=== PATIENT | female | born 2000 | race Hispanic/Latino ===

== ENCOUNTER 2025-09-14 11:33 | Inpatient (IN) | payer OTHER ==
[~2025-09-14] VITALS: Ht 162.6 cm; Wt 116.6 kg
[2025-09-14] MEDS ORDERED: CALCIUM CARBONATE 500 MG CHEW PO PRN ×2 (13:45→19:00)
[2025-09-14] MEDS ORDERED: TERBUTALINE SULFATE 1 MG/ML AMP SUB-Q PRN (13:45)
[2025-09-14] MEDS ORDERED: MAGNESIUM HYDROXIDE/AL HYDROX 30 ML CUP PO PRN ×2 (13:45→19:00)
[2025-09-14] MEDS ORDERED: LACTATED RINGER'S 1,000 ML IV SCH (13:45)
[2025-09-14] MEDS ORDERED: LIDOCAINE HCL 1% 30 ML SDV INJ PRN (13:45)
[2025-09-14 13:50] LABS: MCH 27.9 PG (25.6-32.2); MCHC 33.1 g/dL (32.2-35.5); MCV 84.4 fL (79.4-94.8); RBC 4.37 M/uL (3.93-5.22)
[2025-09-14 14:02] LABS: ABO O; RH POSITIVE
[2025-09-14 14:12] LABS: AMPHETAMINES, URINE NEGATIVE (NEGATIVE); BARBITURATES, URINE NEGATIVE (NEGATIVE); BENZODIAZEPINE, URINE NEGATIVE (NEGATIVE); CANNABINOID, URINE POSITIVE (NEGATIVE); COCAINE, URINE NEGATIVE (NEGATIVE); ECSTASY, URINE NEGATIVE (NEGATIVE); FENTANYL, URINE NEGATIVE (NEGATIVE); METHADONE, URINE NEGATIVE (NEGATIVE); OPIATES, URINE NEGATIVE (NEGATIVE); OXYCODONE, URINE NEGATIVE (NEGATIVE); PHENCYCLIDINE, URINE NEGATIVE (NEGATIVE)
[2025-09-14] MEDS ORDERED: ROPIVACAINE 0.2% 200 ML BAG ONE (14:16)
[2025-09-14 14:18] LABS: ANTIBODY SCREEN NEGATIVE
[2025-09-14 14:36] VITALS: BP 108/70
[2025-09-14] MEDS ORDERED: ROPIVACAINE 0.2% 200 ML BAG EPIDURAL SCH (14:45)
[2025-09-14] MEDS ORDERED: LACTATED RINGER'S 2,000 ML IV ONE (14:45)
[2025-09-14] MEDS ORDERED: LACTATED RINGER'S 500 ML IV PRN (14:45)
[2025-09-14] MEDS ORDERED: ePHEDrine sulfate 5 MG/ML SYRINGE IV PRN (14:45)
[2025-09-14] MEDS ORDERED: OXYTOCIN/0.9 % SODIUM CHLORIDE 500 ML IV SCH ×2 (15:15→19:00)
--- NOTE | 2025-09-14 17:09 | PR ---
[facility] [address] [place], [place] [address] Signed Progress Notes IP Datetime Report Generated by CPN: 09/14/2025 17:09 PROGRESS NOTES: [id number] Impression: Normal Progression of Labor Procedures: Artificial ROM Plan: Continue Present Management VITAL SIGNS: [id number] Vital Signs: Reviewed; Within Normal Limits EXAM: [id number] Dilatation: 8.0 Effacement: 90 Effacement: 95 Effacement: 85 Effacement: 85 Station: -1 Station: -2 Station: -1 Station: -1 Contractions: every 3-4 minutes MEMBRANES: [id number] Membranes Status: Ruptured Comments: Pt comfortable with epidural in place. FHR Cat I with accelerations, no decelerations. Cvx 8/90/-1. AROM clear fluid, moderate amount. fingers palpated on left side of head. FETUS A: [id number] FHR Baseline: 140 Variability: Moderate 6-25bpm Accelerations: 15X15 Decelerations: None Presentation: Vertex FETUS B: [id number] Signing Physician: Leticia Collins CNM Copies: ~ *Electronically Signed* 09/14/25 1709 LETICIA COLLINS CNM PATIENT NAME: SOSA BUENO PROGRESS NOTE DATE OF : 99 PHYSICIAN: LETICIA COLLINS CNM RPT #: [id number] REPORT IS CONFIDENTIAL AND NOT TO BE RELEASED WITHOUT AUTHORIZATION
[2025-09-14] MEDS ORDERED: TRANEXAMIC ACID IN NACL,ISO-OS 0 ML IV ONE (18:34)
[2025-09-14 18:49] LABS: IS CROSSMATCH COMPATIBLE
[2025-09-14 18:50] LABS: ABO O; RH POSITIVE
[2025-09-14] MEDS ORDERED: WITCH HAZEL/GLYCERIN 1 EA PAD TOP PRN (19:00)
[2025-09-14] MEDS ORDERED: ACETAMINOPHEN 325 MG TAB PO PRN (19:00)
[2025-09-14] MEDS ORDERED: IBUPROFEN 600 MG TAB PO PRN (19:00)
[2025-09-14] MEDS ORDERED: BENZOCAINE 60 ML AEROSOL TOP PRN (19:00)
[2025-09-14] MEDS ORDERED: MAGNESIUM HYDROXIDE 30 ML UDC PO PRN (19:00)
[2025-09-14] MEDS ORDERED: HYDROCORTISONE ACETATE 25 MG SUPP PR PRN (19:00)
[2025-09-14] MEDS ORDERED: LIDOCAINE 2% VISCOUS 6 ML SYR TOP ONE ×2 (19:00)
[2025-09-14] MEDS ORDERED: SENNOSIDES/DOCUSATE 1 EA TAB PO SCH (21:00)
--- NOTE | 2025-09-15 18:56 | PR ---
[facility] [address] [place], [place] [address] Signed PP Progress Notes Datetime Report Generated by CPN: 09/15/2025 18:56 SUBJECTIVE: [id number] Pain: Within Normal Limits Nausea/Vomiting: Denies Flatus: Yes Bowel Movement: No Vital Signs: [id number] Vital Signs: Reviewed; Within Normal Limits Cardiovascular: Normal Respiratory: Normal Abdomen/Uterus: Normal Lochia: Normal Vulva/Perineum: Not Done Breasts: Not Done CVA Tenderness: Normal Extremities: Normal Incision: Not Applicable Progress: Normal Exam Comments: Fundus firm U-2 nontender IMPRESSION/PLAN/PROCEDURES: [id number] Impression: Normal Progression Plan: Discharge Progress Notes: Pt seen and examined. Doing well. Ambulating, voiding, and tolerating full diet. Pain and lochia minimal. well. No fever/chill/lightheadeness or other concerns. Desires d/c home. All questions answered. Undecided on pp contraception but considering micornor vs IUD. Reviewed d/c instructions, medications, and anticipated pp course. F/U 6 wk for pp visit. Signing Physician: Alejandra Gutierrez DO Copies: ~ *Electronically Signed* 09/15/25 2771 ALEJANDRA GUTIERREZ (ANDRES) DO PATIENT NAME: SOSA BUENO PROGRESS NOTE DATE OF : 99 PHYSICIAN: ALEJANDRA GUTIERREZ DO (JD) RPT #: [id number] REPORT IS CONFIDENTIAL AND NOT TO BE RELEASED WITHOUT AUTHORIZATION
--- NOTE | 2025-09-16 07:14 | PR ---
[facility] [address] [facility] [place], [place] [address] Signed PP Progress Notes Datetime Report Generated by CPN: 09/16/2025 07:14 Pain: Within Normal Limits Nausea/Vomiting: Denies Flatus: Yes Bowel Movement: No Vital Signs: Reviewed; Within Normal Limits Cardiovascular: Normal Respiratory: Normal Abdomen/Uterus: Normal Lochia: Normal Vulva/Perineum: Not Done Breasts: Not Done CVA Tenderness: Normal Extremities: Normal Incision: Not Applicable Progress: Not Applicable Exam Comments: Fundus firm U-2 nontender Impression: Normal Progression Plan: Discharge Progress Notes: Pt seen and examined. Doing well. Stayed overnight due to discharge being canceled. Baby is being transfered to [facility] NICU this AM. Pt continues to do well w/ no concerns and would like to be dicharged this morning. No changes and has no questions about discharge meds, education, or follow up. Will D/C Signing Physician: Alejandra Gutierrez DO Copies: ~ *Electronically Signed* 09/16/25 07 ALEJANDRA GUTIERREZ (ANDRES) DO PATIENT NAME: SOSA BUENO PROGRESS NOTE DATE OF : 99 PHYSICIAN: ALEJANDRA GUTIERREZ) DO RPT #: [id number] REPORT IS CONFIDENTIAL AND NOT TO BE RELEASED WITHOUT AUTHORIZATION
== END 2025-09-16 07:52 | disposition home or self-care (01) | DRG 807 ==
LOC: FBCO 11:33 → FBC 13:15 → FBCO 13:15 → FBC 15:10
PROVIDERS: ADMIT Advanced Practice Midwife; ATTEND Advanced Practice Midwife
PROC: 10E0XZZ Delivery of Products of Conception, External Approach (ICD-10-PCS; principal; 2025-09-14)
PROC: 3E0R3BZ Introduction of Anesthetic Agent into Spinal Canal, Percutaneous Approach (ICD-10-PCS; 2025-09-14)
PROC: 00HU33Z Insertion of Infusion Device into Spinal Canal, Percutaneous Approach (ICD-10-PCS; 2025-09-14)
DX: O36.8130 Decreased fetal movements, third trimester, not applicable or unspecified (principal); Z37.0 Single live birth; Z3A.39 39 weeks gestation of pregnancy
CPT/HCPCS: 01960; 36415; 80307; 85027; 86850; 86900; 86901; 86922; A9270